=== PATIENT | female | born 1965 | race Caucasian/White ===

== ENCOUNTER 2022-04-14 08:13 | Outpatient (CLI) | payer OTHER, SELFPAY ==
[2022-04-14 11:19] LABS: Alanine Aminotransferase* 48 U/L (4-35); Aspartate Amino Transferase* 49 U/L (12-35); Cholesterol* 205 mg/dL (90-199); Triglycerides* 191 mg/dL (40-149)
[2022-04-14 11:20] LABS: HDL Cholesterol* 70 mg/dL (>=50); LDL Cholesterol Calculated 97 mg/dL (<100)
== END 2022-04-14 08:14 | disposition home or self-care (01) ==
PROVIDERS: PCP Internal Medicine; Visit Provider Internal Medicine
DX: E11.9 Type 2 diabetes mellitus without complications (principal); I10 Essential (primary) hypertension; E66.9 Obesity, unspecified; E78.5 Hyperlipidemia, unspecified; K76.0 Fatty (change of) liver, not elsewhere classified; R74.8 Abnormal levels of other serum enzymes
CPT/HCPCS: 80061; 84450; 84460

== ENCOUNTER 2022-09-25 11:12 | Outpatient (CLI) | payer OTHER, SELFPAY ==
--- NOTE | 2022-09-25 11:30 | CRLHL7_ITS ---
For Patients: As a result of the Century Cures Act, medical imaging exams and procedure reports are released immediately into your electronic medical record. You may view this report before your referring provider. If you have questions, please contact your health care provider. BILATERAL SCREENING MAMMOGRAM WITH COMPUTER-AIDED DETECTION AND TOMOSYNTHESIS TECHNIQUE: CC and MLO views were obtained. These mammographic images have been obtained using full-field digital technique. These mammographic images were interpreted with the benefit of computer-aided detection. Breast Tomosynthesis was used in this interpretation. COMPARISON FILM: 08/27/21, 08/26/20, 08/25/19. FINDINGS: There are scattered areas of fibroglandular density IMPRESSION: There is no radiographic evidence for malignancy. ASSESSMENT: BI-RADS Category 1: Negative RECOMMENDATION: Routine screening mammogram in 1 year. A lay language report of this examination will be provided to the patient. Roscoe Lester M.D. Diagnostic Radiologist [email or web address] CHACHO/Dictated by: Roscoe Lester MD @ 09/25/2022 12:01:00 PM (Electronically Signed)
== END 2022-09-25 11:13 | disposition home or self-care (01) ==
LOC: MAMMO 11:13
PROVIDERS: PCP Internal Medicine; Visit Provider Internal Medicine
DX: Z12.31 Encounter for screening mammogram for malignant neoplasm of breast (principal)
CPT/HCPCS: 77063; 77067

== ENCOUNTER 2022-10-20 07:31 | Outpatient (CLI) | payer OTHER, SELFPAY ==
[2022-10-20 12:21] LABS: Microalbumin Creatinine Ratio 10 mg/g (0-30); Microalbumin Urine 4 mg/dL
== END 2022-10-20 07:32 | disposition home or self-care (01) ==
LOC: NFLDREF 07:31
PROVIDERS: PCP Internal Medicine; Visit Provider Internal Medicine
DX: E11.9 Type 2 diabetes mellitus without complications (principal)
CPT/HCPCS: 82043; 82570

== ENCOUNTER 2023-04-20 08:10 | Outpatient (CLI) | payer OTHER, SELFPAY | END 2023-04-20 08:11 | disposition home or self-care (01) | LOC: NFLDREF 04-21 11:50 | PROVIDERS: PCP Internal Medicine; Referring Provider Internal Medicine; Visit Provider Internal Medicine | DX: I10 Essential (primary) hypertension (principal); E78.5 Hyperlipidemia, unspecified; E11.9 Type 2 diabetes mellitus without complications | CPT/HCPCS: 80053; 80061 ==

== ENCOUNTER 2023-05-18 08:15 | Outpatient (RCR) | payer OTHER, SELFPAY | END 2023-08-03 14:08 | disposition home or self-care (01) | PROVIDERS: PCP Internal Medicine; Visit Provider Internal Medicine | DX: M67.921 Unspecified disorder of synovium and tendon, right upper arm (principal); Z51.89 Encounter for other specified aftercare | CPT/HCPCS: 97110; 97140; 97161 ==

== ENCOUNTER 2023-10-01 12:46 | Outpatient (CLI) | payer OTHER, SELFPAY ==
--- NOTE | 2023-10-01 13:00 | CRLHL7_ITS ---
For Patients: As a result of the Cures Act, medical imaging exams and procedure reports are released immediately into your electronic medical record. You may view this report before your referring provider. If you have questions, please contact your health care provider. BILATERAL SCREENING MAMMOGRAM WITH COMPUTER-AIDED DETECTION AND TOMOSYNTHESIS TECHNIQUE: CC and MLO views were obtained. These mammographic images have been obtained using full-field digital technique. These mammographic images were interpreted with the benefit of computer-aided detection. Breast Tomosynthesis was used in this interpretation. COMPARISON FILM: 09/25/22, 08/27/21, 08/26/20. FINDINGS: There are scattered areas of fibroglandular density IMPRESSION: There is no radiographic evidence for malignancy. ASSESSMENT: BI-RADS Category 1: Negative RECOMMENDATION: Routine screening mammogram in 1 year. A lay language report of this examination will be provided to the patient. Clayton Valdez M.D. Diagnostic/Nuclear Medicine Radiologist [email or web address] CHACHO/Dictated by: Clayton Valdez MD @ 10/05/2023 8:22:00 AM (Electronically Signed)
== END 2023-10-01 12:47 | disposition home or self-care (01) ==
LOC: MAMMO 12:47
PROVIDERS: PCP Internal Medicine; Visit Provider Internal Medicine
DX: Z12.31 Encounter for screening mammogram for malignant neoplasm of breast (principal)
CPT/HCPCS: 77063; 77067

== ENCOUNTER 2023-10-18 08:24 | Outpatient (CLI) | payer OTHER, SELFPAY | END 2023-10-18 08:25 | disposition home or self-care (01) | LOC: NFLDREF 10-19 05:09 | PROVIDERS: PCP Internal Medicine; Referring Provider Internal Medicine; Visit Provider Internal Medicine | DX: I10 Essential (primary) hypertension (principal); E11.9 Type 2 diabetes mellitus without complications; E78.5 Hyperlipidemia, unspecified; E66.9 Obesity, unspecified; K76.0 Fatty (change of) liver, not elsewhere classified | CPT/HCPCS: 82043; 82570 ==

== ENCOUNTER 2023-12-31 06:20 | Outpatient (CLI) | payer OTHER, SELFPAY ==
--- NOTE | 2023-12-31 07:51 | W.ANESCHARGE ---
Anesthesia Charges Start Date/Time Anesthesia Start Date: 12/31/23 Anesthesia Start Time: 07:19 Stop Date/Time Anesthesia Stop Date: 12/31/23 Anesthesia Stop Time: 07:36
== END 2023-12-31 06:21 | disposition home or self-care (01) ==
LOC: OP CLINIC 06:20
PROVIDERS: PCP Internal Medicine; Visit Provider Internal Medicine
DX: Z12.11 Encounter for screening for malignant neoplasm of colon (principal); K64.8 Other hemorrhoids
CPT/HCPCS: 00812; 45378; J2704

== ENCOUNTER 2024-04-20 07:52 | Outpatient (CLI) | payer OTHER, SELFPAY | END 2024-04-20 07:53 | disposition home or self-care (01) | LOC: NFLDREF 04-21 08:48 | PROVIDERS: PCP Internal Medicine; Referring Provider Internal Medicine; Visit Provider Internal Medicine | DX: E11.9 Type 2 diabetes mellitus without complications (principal); I10 Essential (primary) hypertension; E78.5 Hyperlipidemia, unspecified | CPT/HCPCS: 80053; 80061 ==

== ENCOUNTER 2024-10-25 08:57 | Outpatient (CLI) | payer OTHER, SELFPAY | END 2024-10-25 08:58 | disposition home or self-care (01) | LOC: MAMMO 08:58 | PROVIDERS: PCP Internal Medicine; Visit Provider Internal Medicine | DX: Z12.31 Encounter for screening mammogram for malignant neoplasm of breast (principal) | CPT/HCPCS: 77063; 77067 ==

== ENCOUNTER 2024-11-02 07:57 | Outpatient (CLI) | payer OTHER, SELFPAY | END 2024-11-02 07:58 | disposition home or self-care (01) | LOC: NFLDREF 11-08 03:26 | PROVIDERS: PCP Internal Medicine; Referring Provider Internal Medicine; Visit Provider Internal Medicine | DX: E11.9 Type 2 diabetes mellitus without complications (principal); Z79.84 Long term (current) use of oral hypoglycemic drugs | CPT/HCPCS: 82043; 82570 ==

== ENCOUNTER 2025-04-30 08:02 | Outpatient (CLI) | payer OTHER, SELFPAY | END 2025-04-30 08:03 | disposition home or self-care (01) | LOC: NFLDREF 05-02 15:08 | PROVIDERS: PCP Internal Medicine; Referring Provider Internal Medicine; Visit Provider Internal Medicine | DX: E78.5 Hyperlipidemia, unspecified (principal); E11.9 Type 2 diabetes mellitus without complications | CPT/HCPCS: 80053; 80061 ==